=== PATIENT | female | born 1980 | race Caucasian/White ===

== ENCOUNTER 2022-11-04 14:12 | Emergency (ER) | payer MEDICAID ==
[~2022-11-04] VITALS: Ht 180.3 cm; Wt 90.7 kg
[~2022-11-04 14:12] MED LIST: Percocet 5-3251 EACH PO; Zofran4 MG PO
== END 2022-11-04 17:06 | disposition home or self-care (01) ==
LOC: ER 14:12
DX: S62.324A Displaced fracture of shaft of fourth metacarpal bone, right hand, initial encounter for closed fracture (principal); Z88.0 Allergy status to penicillin; X50.9XXA Other and unspecified overexertion or strenuous movements or postures, initial encounter
CPT/HCPCS: 73130